=== PATIENT | male | born 1995 | race Caucasian/White ===

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

== ENCOUNTER → 2017-06-20 | Outpatient (CLI) | payer BC | LOC: BMCIMAGING 14:42 | PROVIDERS: ATTEND Family Medicine | DX: S62.350A Nondisplaced fracture of shaft of second metacarpal bone, right hand, initial encounter for closed fracture (principal); Y93.71 Activity, boxing ==

== ENCOUNTER → 2017-08-01 | Outpatient (CLI) | payer BC | LOC: BMCIMAGING 09:10 | PROVIDERS: ATTEND Physician Assistant | DX: S62.310D Displaced fracture of base of second metacarpal bone, right hand, subsequent encounter for fracture with routine healing (principal) ==